=== PATIENT | male | born 1975 | race Caucasian/White ===

== ENCOUNTER 2017-08-30 16:11 | Emergency (ER) | payer OTHER ==
[2017-08-30 16:19] VITALS: RESP 18
--- NOTE | 2017-08-30 17:58 | EDPHY ---
H & P Time Seen by Provider: 08/30/17 16:23 HPI/ROS: CHIEF COMPLAINT: Left index finger injury HISTORY OF PRESENT ILLNESS: 41-year-old male presents to the emergency department with injury to the left index finger. They present to the emergency department by ambulance. The patient was skiing and collided with his and his left index finger hit her in her face. He had obvious deformity and apparently a had a change in sensation and color to his finger which they then [place] Denies any other trauma or injury. He is right-hand dominant. He is unable to move the left index finger. Denies injury to the other fingers or his left wrist. REVIEW OF SYSTEMS: Constitutional: No fever, no chills. Eyes: No double or blurry vision. ENT: No sore throat. Respiratory: No cough, no shortness of breath. Cardiac: No chest pain. Gastrointestinal: No abdominal pain, vomiting or diarrhea. Genitourinary: No dysuria. Musculoskeletal: No neck or back pain. Skin: No rashes. Neurological: No headache. Past Medical/Surgical History: Lap band surgery, hypothyroidism, transgender Social History: Smoking Status: Never smoked Physical Exam: General Appearance: Alert, no distress. No visible signs of trauma to the head. Mentating normally and answering questions appropriately. Eyes: Pupils equal and round. Extraocular motions are all intact. ENT: Mouth: Mucous membranes moist. Respiratory: No wheezing, rhonchi, or rales, lungs are clear to auscultation. Cardiovascular: Regular rate and rhythm. Gastrointestinal: Abdomen is soft and nontender, no masses, no rebound or guarding, bowel sounds normal. Neurological: Alert and oriented x 3, cranial nerves II through XII grossly intact Skin: Warm and dry, no rashes. Musculoskeletal: Nontender to palpate along the cervical, thoracic or lumbar spine. Neck is supple. Extremities: Tender with palpation at the left PIP joint. Palpable deformity at the left 2nd PIP joint. Unable to flex at the PIP joint of the left index finger. The other fingers do not appear injured. He has normal sensation to light touch with normal 2 point discrimination. Psychiatric: Patient is oriented X 3, there is no agitation. Constitutional: Initial Vital Signs Temperature (C) 36.6 C 08/30/17 16:15 Heart Rate 86 08/30/17 16:15 Respiratory Rate 18 08/30/17 16:15 Blood Pressure 155/105 H 08/30/17 16:15 O2 Sat (%) 97 08/30/17 16:15 O2 Delivery Mode Room Air Allergies/Adverse Reactions: fluconazole [From Diflucan] Allergy (Verified 08/30/17 16:19) Home Medications: Medication Instructions Recorded Acyclovir 08/30/17 Levothyroxine 08/30/17 Testosterone 08/30/17 Zinc 08/30/17 Medical Decision Making - Diagnostics Imaging: I viewed and interpreted images myself Procedures: After consent was obtained from the patient, digital block was performed on the left index finger using 1% lidocaine without epinephrine 0.5% bupivacaine without epinephrine. After adequate anesthesia, the left index finger at the PIP joint was easily relocated. The patient was placed in [place] splint and fingers were abigail-taped. This was examined post application in good placement with normal [employer]. ED Course/Re-evaluation: 41-year-old male presents to the emergency department with left index finger injury. On examination the patient has palpable deformity of the PIP joint consistent with dislocation. He has limited range of motion. X-rays confirm dislocation without fracture. The finger was easily relocated, see procedure note. Repeat x-rays were obtained which reveal no fractures. He was placed in a splint, fingers abigial- taped, he was given orthopedic referral. Differential Diagnosis: Including but not limited to fracture, dislocation, contusion, sprain Departure - Departure Disposition: Home, Routine, Self-Care Clinical Impression: Dislocation of left index finger Qualifiers: Encounter type: initial encounter Qualified Code(s): S63.251A - Unspecified dislocation of left index finger, initial encounter Condition: Good Instructions: Finger Dislocation (ED) Additional Instructions: Keep splint on until follow-up with orthopedic hand surgeon. Ibuprofen 600 mg every 8 hr as needed for pain. Referrals: LOU BURDICK [Other] - As per Instructions Terri Huber MD [Medical Doctor] - 5-7 days, call for appt. (Orthopedic hand surgeon on-call)
[2017-08-30 18:05] VITALS: BP 135/81; PULSE 74; TEMP 98.2; O2SAT 99
== END 2017-08-30 18:05 | disposition home or self-care (01) ==
PROC: 0RSXXZZ Reposition Left Finger Phalangeal Joint, External Approach (ICD-10-PCS; principal; 2017-08-30)
DX: S63.281A Dislocation of proximal interphalangeal joint of left index finger, initial encounter (principal); V00.328A Other snow-ski accident, initial encounter; Y93.23 Activity, snow (alpine) (downhill) skiing, snowboarding, sledding, tobogganing and snow tubing
CPT/HCPCS: L3925

== ENCOUNTER → 2018-04-22 | Outpatient (CLI) | payer OTHER | LOC: FIMAGING 11:07 | PROVIDERS: ATTEND Family Medicine | DX: R10.30 Lower abdominal pain, unspecified (principal) ==

== ENCOUNTER → 2018-04-27 | Outpatient (CLI) | payer OTHER | LOC: BMCIMAGING 13:25 | PROVIDERS: ATTEND Family Medicine | DX: R10.2 Pelvic and perineal pain (principal) ==